=== PATIENT | male | born 1955 | race Caucasian/White ===

== ENCOUNTER → 2020-07-27 17:28 | Outpatient (BNVA) | payer MEDICARE, OTHER, SELFPAY | PROVIDERS: Family Provider Family Medicine; Visit Provider Nurse Practitioner Family | DX: Z20.828 Contact with and (suspected) exposure to other viral communicable diseases (principal) | CPT/HCPCS: 87635 ==

== ENCOUNTER → 2022-04-15 08:50 | Outpatient (BNVA) | payer MEDICARE, OTHER, SELFPAY | PROVIDERS: Family Provider Family Medicine; PCP Family Medicine; Visit Provider Nurse Practitioner Family | DX: N40.1 Benign prostatic hyperplasia with lower urinary tract symptoms (principal); R39.15 Urgency of urination; R35.0 Frequency of micturition; R35.1 Nocturia; N13.8 Other obstructive and reflux uropathy | CPT/HCPCS: 51741; 51798; 81003; 99203 ==

== ENCOUNTER → 2022-07-16 08:48 | Outpatient (BNVA) | payer MEDICARE, OTHER, SELFPAY | PROVIDERS: Family Provider Family Medicine; PCP Family Medicine; Visit Provider Urology | DX: N40.1 Benign prostatic hyperplasia with lower urinary tract symptoms (principal); R39.15 Urgency of urination; R31.0 Gross hematuria; R35.89 Other polyuria; R35.1 Nocturia | CPT/HCPCS: 51741; 51798; 52000; 81003; 99213 ==

== ENCOUNTER 2022-12-22 07:31 | Outpatient (CLI) | payer MEDICARE, OTHER, SELFPAY | END 2022-12-22 07:32 | disposition home or self-care (01) | LOC: LAB 07:35 | PROVIDERS: PCP Family Medicine; Visit Provider Urology | DX: N40.1 Benign prostatic hyperplasia with lower urinary tract symptoms (principal); Z12.5 Encounter for screening for malignant neoplasm of prostate | CPT/HCPCS: 36415; 51741; 51798; 84153; 99213 ==

== ENCOUNTER 2024-02-16 11:23 | Outpatient (CLI) | payer MEDICARE, OTHER, SELFPAY ==
--- NOTE | 2024-02-16 11:31 | XR_ITS ---
WS: [id number] Examination: XR knee RT 3V* [id number] Reason for Exam: right knee pain Date: February 16, 2024 Comparison: None. Findings: The bone density is maintained. There is no destruction There is no fracture or dislocation. No large joint effusion is identified Mild medial joint space narrowing is identified. Small patellar and marginal osteophytes are identifi ed. XR/XR knee RT 3V* [id number] Impression: No acute bony abnormalities identified Mild degenerative changes are noted particular involving the medial joint space .
== END 2024-02-16 11:24 | disposition home or self-care (01) ==
PROVIDERS: PCP Family Medicine; Visit Provider Nurse Practitioner Family
DX: M25.561 Pain in right knee (principal)
CPT/HCPCS: 73562